=== PATIENT | female | born 1950 | race Asian ===

== ENCOUNTER 2020-04-01 18:41 | Inpatient (IN) | payer OTHER ==
[~2020-04-01] VITALS: Ht 160 cm; Wt 52.3 kg
[2020-04-01 19:14] LABS: Basophils # (auto) 0 10 ^3/uL (0-0.2); Eosinophils # (auto) 0 10 ^3/uL (0-0.8); Eosinophils % (auto) 0.4 % (0.0-7.0); Hematocrit 37.6 % (36.0-46.0); Hemoglobin 12.9 g/dL (12.2-16.2); Lymphocytes # (auto) 0.8 10 ^3/uL (0.4-5.4); Mean Corpuscular Hemoglobin 30.6 pg (28.0-32.0); Mean Corpuscular Hgb Conc. 34.2 g/dL (32.0-36.0); Mean Corpuscular Volume 89.5 fL (80.0-100.0); Monocytes # (auto) 0.4 10 ^3/uL (0-1.3); Monocytes % (auto) 11.4 % (0.0-12.0); Neutrophils # (auto) 2.1 10 ^3/uL (1.6-8.6); Neutrophils % (auto) 64.2 % (37.0-80.0); Nucleated Red Blood Cells % 0.2 %; Platelet Count (auto) 125 10^3/uL (140-450); Red Cell Distribution Width 12.9 % (11.8-14.3); White Blood Cell 3.3 10^3/uL (4.4-10.8)
[2020-04-01 19:31] LABS: INR 0.87 (0.9-1.15); Partial Thromboplastin Time 31.9 sec (23.0-31.2)
[2020-04-01 19:38] LABS: Alanine Aminotransferase 39 U/L (13-56); Albumin 3.3 g/dL (3.4-5.0); Anion Gap 10 (5-15); Aspartate Aminotransferase 51 U/L (15-37); Blood Urea Nitrogen 9 mg/dL (7-18); Calcium 8.4 mg/dL (8.5-10.1); Carbon Dioxide 23 mmol/L (21-32); Chloride 105 mmol/L (98-107); GFR African American 99 mL/min; GFR Non-African American 81 mL/min; Glucose 101 mg/dL (74-106); Magnesium 2.1 mg/dL (1.6-2.6); Potassium 3.9 mmol/L (3.5-5.1); Sodium 138 mmol/L (136-145)
[2020-04-01 19:43] LABS: Alkaline Phosphatase 64 U/L (45-117); Bilirubin, Total 0.4 mg/dL (0.2-1.0)
[2020-04-01] MEDS ORDERED: DOXYCYCLINE 100MG/250ML 250 ML IV ONE (20:00)
[2020-04-01] MEDS ORDERED: ACETAMINOPHEN 325 MG TAB PO ONE (20:00)
[2020-04-01] MEDS ORDERED: DexAMETHasone SOD PHOS 10MG/1ML VIAL INJ IV ONE (20:00)
[2020-04-01] MEDS ORDERED: SODIUM CHLORIDE 0.9% 500 ML IV ONE (20:15)
[2020-04-01] MEDS ORDERED: NITROGLYCERIN 0.4 MG SL TAB SL PRN (22:15)
[2020-04-01] MEDS ORDERED: MORPHINE SULF INJ 2 MG/ML SYRINGE 1ML IV PRN (22:15)
[2020-04-01] MEDS ORDERED: ALBUTEROL SULF HFA 90MCG INH 200DOSE IN PRN (22:15)
[2020-04-01] MEDS ORDERED: ACETAMINOPHEN 500 MG TAB PO PRN (22:15)
[2020-04-01] MEDS ORDERED: REMDESIVIR PER PHARMACY 0 ML IV SCH (22:15)
[2020-04-01] MEDS ORDERED: TEMAZEPAM 15 MG CAP PO PRN (22:15)
[2020-04-02 00:40] VITALS: BP 110/64
[2020-04-02] MEDS ORDERED: ASCO500T11 PO (02:14)
[2020-04-02] MEDS ORDERED: ZINC220C8 PO (02:14)
[2020-04-02] MEDS ORDERED: HYDR200T36 PO (02:14)
[2020-04-02] MEDS ORDERED: CHOL20007 PO (02:14)
[2020-04-02 03:48] LABS: Urine WBC None Seen /hpf (0 - 5)
[2020-04-02 04:03] LABS: Urine Bacteria NONE SEEN /hpf (None Seen); Urine Blood Negative /uL (Negative); Urine Specific Gravity 1.004 (1.001-1.035)
[2020-04-02 05:00] VITALS: BP 100/52
[2020-04-02] MEDS: ACETAMINOPHEN 325 MG TAB PO PRN (06:28)
[2020-04-02] MEDS: guaiFENesin-DM 100/10mg/5ml SYR PO PRN (06:28)
[2020-04-02 07:50] LABS: Hemoglobin 12.8 g/dL (12.2-16.2)
[2020-04-02 07:54] LABS: Hematocrit 36.7 % (36.0-46.0); Mean Corpuscular Hemoglobin 30.7 pg (28.0-32.0); Mean Corpuscular Hgb Conc. 34.8 g/dL (32.0-36.0); Mean Corpuscular Volume 88.1 fL (80.0-100.0); Platelet Count (auto) 128 10^3/uL (140-450); Red Blood Cells 4.17 10^6/uL (4.0-5.20); Red Cell Distribution Width 12.8 % (11.8-14.3)
[2020-04-02 08:05] LABS: Albumin 3.2 g/dL (3.4-5.0); BUN/Creatinine Ratio 14.8; Calcium 8.7 mg/dL (8.5-10.1); Potassium 4.2 mmol/L (3.5-5.1)
[2020-04-02 08:08] LABS: Bilirubin, Total 0.5 mg/dL (0.2-1.0)
[2020-04-02 08:21] LABS: White Blood Cell 1.7 10^3/uL (4.4-10.8)
[2020-04-02 08:22] LABS: Band Neutrophils % (manual) 0; Basophils % (manual) 0 (0.0-2.0); Blast Cells 0; Eosinophils % (manual) 0 (0-7); Metamyelocytes % 0; Myelocytes % 0; Promyelocytes % 0; Reactive Lymphocytes 0
[2020-04-02 08:53] VITALS: BP 105/61
[2020-04-02 08:57] LABS: Lymphocytes % (manual) 50 (10.0-50.0); Monocytes % (manual) 6 (0-12)
[2020-04-02] MEDS: DexAMETHasone SOD PHOS 10MG/1ML VIAL INJ IV SCH (09:54)
[2020-04-02] MEDS: FLORASTOR (S. BOULARDII) 250 MG CAP PO SCH (09:54)
[2020-04-02] MEDS: ZINC SULFATE 220mg CAP or TAB PO SCH (09:54)
[2020-04-02] MEDS: DOXYCYCLINE 100MG/250ML 250 ML IV SCH ×2 (09:54→21:35)
[2020-04-02] MEDS: ASCORBIC ACID 1,000 MG TAB PO SCH (09:55)
[2020-04-02] MEDS: FAMOTIDINE 20 MG TAB PO SCH (09:55)
[2020-04-02] MEDS: CHOLECALCIFEROL (VITD3) 2,000 UNIT CAP/TAB PO SCH (09:55)
[2020-04-02] MEDS: ENOXAPARIN SOD 40 MG/0.4 ML SYRINGE SC SCH ×2 (09:56→21:35)
[2020-04-02] MEDS ORDERED: ENOXAPARIN SOD 40 MG/0.4 ML SYRINGE SC SCH (10:00)
[2020-04-02] MEDS ORDERED: POTASSIUM CHL 20 Meq TABLET PO SCH (10:00)
[2020-04-02] MEDS ORDERED: HYDROcodone-ACET 5/325MG TAB PO PRN (12:15)
[2020-04-02] MEDS ORDERED: BUDESONIDE (INHALATION) 0.5 MG/2 ML NEB ONE (12:27)
[2020-04-02] MEDS ORDERED: BUDESONIDE (INHALATION) 0.5 MG/2 ML NEB NEB ONE (12:30)
[2020-04-02 13:00] VITALS: BP 125/71
[2020-04-02 16:53] VITALS: BP 123/63
[2020-04-02] MEDS: ONDANSETRON HCL 4 MG/2 ML VIAL IV PRN (21:35)
[2020-04-02 22:00] VITALS: BP 106/58
[2020-04-02] MEDS: BUDESONIDE (INHALATION) 0.5 MG/2 ML NEB NEB SCH (22:00)
[2020-04-03 05:00] VITALS: BP 129/62
[2020-04-03 06:25] LABS: Basophils # (auto) 0 10 ^3/uL (0-0.2); Basophils % (auto) 0.1 % (0.0-2.0); Eosinophils # (auto) 0 10 ^3/uL (0-0.8); Hematocrit 33.9 % (36.0-46.0); Lymphocytes # (auto) 1.2 10 ^3/uL (0.4-5.4); Lymphocytes % (auto) 26.6 % (10.0-50.0); Mean Corpuscular Hemoglobin 31.2 pg (28.0-32.0); Mean Corpuscular Hgb Conc. 35.5 g/dL (32.0-36.0); Monocytes # (auto) 0.6 10 ^3/uL (0-1.3); Monocytes % (auto) 12.6 % (0.0-12.0); Neutrophils # (auto) 2.7 10 ^3/uL (1.6-8.6); Neutrophils % (auto) 60.7 % (37.0-80.0); Platelet Count (auto) 155 10^3/uL (140-450); Red Blood Cells 3.85 10^6/uL (4.0-5.20); Red Cell Distribution Width 12.7 % (11.8-14.3); White Blood Cell 4.5 10^3/uL (4.4-10.8)
[2020-04-03 06:49] LABS: BUN/Creatinine Ratio 23.7; Calcium 8.4 mg/dL (8.5-10.1)
[2020-04-03] MEDS: BUDESONIDE (INHALATION) 0.5 MG/2 ML NEB NEB SCH ×2 (07:20→07:55)
[2020-04-03] MEDS: ONDANSETRON HCL 4 MG/2 ML VIAL IV PRN ×2 (07:47→22:06)
[2020-04-03 08:24] VITALS: BP 117/69
[2020-04-03] MEDS: DexAMETHasone SOD PHOS 10MG/1ML VIAL INJ IV SCH (09:40)
[2020-04-03] MEDS: CHOLECALCIFEROL (VITD3) 2,000 UNIT CAP/TAB PO SCH (09:44)
[2020-04-03] MEDS: ENOXAPARIN SOD 40 MG/0.4 ML SYRINGE SC SCH (09:45)
[2020-04-03] MEDS: DOXYCYCLINE 100MG/250ML 250 ML IV SCH (10:00)
[2020-04-03] MEDS: ZINC SULFATE 220mg CAP or TAB PO SCH (10:45)
[2020-04-03] MEDS: FLORASTOR (S. BOULARDII) 250 MG CAP PO SCH (10:57)
[2020-04-03] MEDS: FAMOTIDINE 20 MG TAB PO SCH (10:57)
[2020-04-03] MEDS: ASCORBIC ACID 1,000 MG TAB PO SCH (10:58)
[2020-04-03] MEDS ORDERED: OMEP20TA PO (11:52)
[2020-04-03] MEDS ORDERED: RALO60TA13 PO (11:52)
[2020-04-03] MEDS ORDERED: ATOR20TA50 PO (11:52)
[2020-04-03] MEDS ORDERED: ASCO-22 PO (11:54)
[2020-04-03] MEDS ORDERED: CHOL20007 PO (11:54)
[2020-04-03] MEDS ORDERED: ZINC220C8 PO (11:54)
[2020-04-03 12:38] VITALS: BP 114/62
[2020-04-03] MEDS ORDERED: REMDESIVIR 200 MG in NS 210ml LOADING DOSE ADULT IV ONE (15:00)
[2020-04-03 16:44] VITALS: BP 134/70
[2020-04-03] MEDS: DOXYCYCLINE 100 MG TAB/CAP PO SCH (21:05)
[2020-04-03 22:00] VITALS: BP 113/56
[2020-04-04] MEDS: ONDANSETRON HCL 4 MG/2 ML VIAL IV PRN ×2 (04:40→23:15)
[2020-04-04 05:00] VITALS: BP 106/65
[2020-04-04 07:38] LABS: Albumin 3.2 g/dL (3.4-5.0); Potassium 4.1 mmol/L (3.5-5.1)
[2020-04-04 07:41] LABS: Bilirubin, Total 0.5 mg/dL (0.2-1.0); Total Protein 7.1 g/dL (6.4-8.2)
[2020-04-04] MEDS: BUDESONIDE (INHALATION) 0.5 MG/2 ML NEB NEB SCH ×2 (07:55→23:11)
[2020-04-04 08:28] VITALS: BP 122/67
[2020-04-04] MEDS: ZINC SULFATE 220mg CAP or TAB PO SCH (10:43)
[2020-04-04] MEDS: ASCORBIC ACID 1,000 MG TAB PO SCH (10:46)
[2020-04-04] MEDS: DOXYCYCLINE 100 MG TAB/CAP PO SCH ×2 (10:46→21:57)
[2020-04-04] MEDS: CHOLECALCIFEROL (VITD3) 2,000 UNIT CAP/TAB PO SCH (10:46)
[2020-04-04] MEDS: ENOXAPARIN SOD 40 MG/0.4 ML SYRINGE SC SCH (10:46)
[2020-04-04] MEDS: FAMOTIDINE 20 MG TAB PO SCH (10:47)
[2020-04-04] MEDS: DexAMETHasone 4 MG TAB PO SCH (10:47)
[2020-04-04] MEDS: FLORASTOR (S. BOULARDII) 250 MG CAP PO SCH (10:47)
[2020-04-04 12:00] VITALS: BP 122/61
[2020-04-04] MEDS ORDERED: DOCUSATE SOD 100 MG CAP PO ONE (12:30)
[2020-04-04 12:51] VITALS: BP 122/61
[2020-04-04] MEDS ORDERED: REMDESIVIR 100mg 100 MG in SODIUM CHL 0.9% 230 ML IV SCH (15:00)
[2020-04-04 17:00] VITALS: BP 129/67
[2020-04-04 22:00] VITALS: BP 130/63
[2020-04-04] MEDS: guaiFENesin-DM 100/10mg/5ml SYR PO PRN (23:28)
[2020-04-05 05:00] VITALS: BP 124/74
[2020-04-05] MEDS: DOCUSATE SOD 100 MG CAP PO PRN ×2 (05:04→21:52)
[2020-04-05] MEDS: ACETAMINOPHEN 325 MG TAB PO PRN (05:04)
[2020-04-05 06:20] LABS: Basophils # (auto) 0 10 ^3/uL (0-0.2); Basophils % (auto) 0.8 % (0.0-2.0); Eosinophils # (auto) 0 10 ^3/uL (0-0.8); Hematocrit 36.2 % (36.0-46.0); Hemoglobin 12.4 g/dL (12.2-16.2); Lymphocytes # (auto) 1.3 10 ^3/uL (0.4-5.4); Lymphocytes % (auto) 25.9 % (10.0-50.0); Mean Corpuscular Hemoglobin 30.3 pg (28.0-32.0); Mean Corpuscular Hgb Conc. 34.3 g/dL (32.0-36.0); Mean Corpuscular Volume 88.2 fL (80.0-100.0); Monocytes # (auto) 0.5 10 ^3/uL (0-1.3); Monocytes % (auto) 9.1 % (0.0-12.0); Neutrophils # (auto) 3.3 10 ^3/uL (1.6-8.6); Neutrophils % (auto) 64.2 % (37.0-80.0); Nucleated Red Blood Cells % 0.1 %; Platelet Count (auto) 190 10^3/uL (140-450); Red Blood Cells 4.11 10^6/uL (4.0-5.20); Red Cell Distribution Width 12.7 % (11.8-14.3); White Blood Cell 5.2 10^3/uL (4.4-10.8)
[2020-04-05 06:41] LABS: Potassium 3.7 mmol/L (3.5-5.1)
[2020-04-05 06:46] LABS: Albumin 2.9 g/dL (3.4-5.0); BUN/Creatinine Ratio 25.4; Bilirubin, Total 0.6 mg/dL (0.2-1.0); CRP High Sensitivity 0.18 mg/dL (< 0.3); Calcium 8.3 mg/dL (8.5-10.1); Total Protein 6.5 g/dL (6.4-8.2)
[2020-04-05] MEDS: BUDESONIDE (INHALATION) 0.5 MG/2 ML NEB NEB SCH ×2 (07:23→07:38)
[2020-04-05 08:30] VITALS: BP 122/63
[2020-04-05] MEDS: FAMOTIDINE 20 MG TAB PO SCH (09:51)
[2020-04-05] MEDS: DexAMETHasone 4 MG TAB PO SCH (09:51)
[2020-04-05] MEDS: FLORASTOR (S. BOULARDII) 250 MG CAP PO SCH (09:51)
[2020-04-05] MEDS: ZINC SULFATE 220mg CAP or TAB PO SCH (09:51)
[2020-04-05] MEDS: CHOLECALCIFEROL (VITD3) 2,000 UNIT CAP/TAB PO SCH (09:52)
[2020-04-05] MEDS: ASCORBIC ACID 1,000 MG TAB PO SCH (09:52)
[2020-04-05] MEDS: ENOXAPARIN SOD 40 MG/0.4 ML SYRINGE SC SCH (09:52)
[2020-04-05] MEDS: DOXYCYCLINE 100 MG TAB/CAP PO SCH (09:52)
[2020-04-05 10:53] VITALS: BP 122/63
[2020-04-05] MEDS: D5W/ SOD CHL 0.9%/KCL 20MEQ 1,000 ML IV SCH (11:30)
[2020-04-05] MEDS: DOXYCYCLINE 100MG/250ML 250 ML IV SCH ×2 (11:30→23:23)
[2020-04-05 12:30] VITALS: BP 104/67
[2020-04-05] MEDS: METOCLOPRAMIDE HCL 5MG/ml INJ 2ml VIAL IV SCH ×2 (14:00→21:52)
[2020-04-05 16:57] VITALS: BP 123/66
[2020-04-05 22:00] VITALS: BP 116/67
[2020-04-06] MEDS: D5W/ SOD CHL 0.9%/KCL 20MEQ 1,000 ML IV SCH (04:13)
[2020-04-06 05:00] VITALS: BP 99/64
[2020-04-06 06:00] VITALS: BP 119/63
[2020-04-06] MEDS: METOCLOPRAMIDE HCL 5MG/ml INJ 2ml VIAL IV SCH ×2 (06:07→14:00)
[2020-04-06 07:17] LABS: Albumin 2.6 g/dL (3.4-5.0); BUN/Creatinine Ratio 22.8; Calcium 8.4 mg/dL (8.5-10.1); Potassium 3.8 mmol/L (3.5-5.1)
[2020-04-06 07:21] LABS: Bilirubin, Total 0.5 mg/dL (0.2-1.0); Total Protein 5.7 g/dL (6.4-8.2)
[2020-04-06] MEDS: BUDESONIDE (INHALATION) 0.5 MG/2 ML NEB NEB SCH (07:35)
[2020-04-06 08:58] VITALS: BP 119/63
[2020-04-06] MEDS: ACETAMINOPHEN 325 MG TAB PO PRN (09:08)
[2020-04-06] MEDS: ENOXAPARIN SOD 40 MG/0.4 ML SYRINGE SC SCH (09:49)
[2020-04-06] MEDS: DexAMETHasone 4 MG TAB PO SCH (09:49)
[2020-04-06] MEDS ORDERED: FAMOTIDINE (10MG/ML) 2ML VL IV SCH (10:00)
[2020-04-06] MEDS: DOXYCYCLINE 100MG/250ML 250 ML IV SCH (11:30)
[2020-04-06] MEDS ORDERED: ALBUAER3 IN (11:55)
[2020-04-06] MEDS ORDERED: ASPI-498 OR (11:55)
[2020-04-06] MEDS ORDERED: DOCU-94 PO (11:55)
[2020-04-06] MEDS ORDERED: METO-281 PO (11:55)
[2020-04-06] MEDS ORDERED: DEX4T PO (11:55)
[2020-04-06 13:00] VITALS: BP 116/71
== END 2020-04-06 15:45 | disposition home or self-care (01) | DRG 177 ==
LOC: ER 18:43 → TELE 22:03 → TELE-WESTW 23:41
PROVIDERS: ADMIT Nurse Practitioner; ATTEND Internal Medicine
PROC: XW033E5 Introduction of Remdesivir Anti-infective into Peripheral Vein, Percutaneous Approach, New Technology Group 5 (ICD-10-PCS; principal; 2020-04-03)
DX: U07.1 COVID-19 (principal); J12.82 Pneumonia due to coronavirus disease 2019; E44.0 Moderate protein-calorie malnutrition; Z68.1 Body mass index [BMI] 19.9 or less, adult; E87.6 Hypokalemia; D72.819 Decreased white blood cell count, unspecified; Z85.3 Personal history of malignant neoplasm of breast; Z87.01 Personal history of pneumonia (recurrent); Z79.82 Long term (current) use of aspirin; B94.8 Sequelae of other specified infectious and parasitic diseases
CPT/HCPCS: 36415; 71045; 80048; 80053; 81001; 82728; 83605; 83615; 83735; 83880; 84484; 85007; 85025; 85027; 85379; 85610; 85730; 86141; 87426; 93005; 94640; 96365; 96375; G0378; J1100; J2405; J3490

== ENCOUNTER 2020-04-17 14:13 | Inpatient (IN) | payer OTHER ==
[~2020-04-17] VITALS: Ht 152.4 cm; Wt 55.1 kg
[~2020-04-17 14:13] MED LIST: ASCO-22 PO; ATOR20TA50 PO; CHOL20007 PO; METO-281 PO; OMEP20TA PO; RALO60TA13 PO; ZINC220C8 PO
[2020-04-17] MEDS ORDERED: SODIUM CHLORIDE 0.9% 500 ML IV ONE (14:30)
[2020-04-17 15:09] LABS: Basophils # (auto) 0.1 10 ^3/uL (0-0.2); Basophils % (auto) 1.1 % (0.0-2.0); Eosinophils # (auto) 0.1 10 ^3/uL (0-0.8); Eosinophils % (auto) 1.8 % (0.0-7.0); Hemoglobin 12.1 g/dL (12.2-16.2); Lymphocytes # (auto) 1.5 10 ^3/uL (0.4-5.4); Lymphocytes % (auto) 20.7 % (10.0-50.0); Mean Corpuscular Hemoglobin 30.3 pg (28.0-32.0); Mean Corpuscular Hgb Conc. 33.7 g/dL (32.0-36.0); Mean Corpuscular Volume 89.8 fL (80.0-100.0); Monocytes # (auto) 0.5 10 ^3/uL (0-1.3); Monocytes % (auto) 7.6 % (0.0-12.0); Neutrophils % (auto) 68.8 % (37.0-80.0); Nucleated Red Blood Cells % 0.1 %; Platelet Count (auto) 170 10^3/uL (140-450); Red Blood Cells 4.01 10^6/uL (4.0-5.20); Red Cell Distribution Width 13.1 % (11.8-14.3); White Blood Cell 7.2 10^3/uL (4.4-10.8)
[2020-04-17 15:26] LABS: Albumin 3.2 g/dL (3.4-5.0); Anion Gap 3 (5-15); Blood Urea Nitrogen 15 mg/dL (7-18); Calcium 8.6 mg/dL (8.5-10.1); Carbon Dioxide 28 mmol/L (21-32); Chloride 109 mmol/L (98-107); Glucose 99 mg/dL (74-106); Potassium 3.7 mmol/L (3.5-5.1); Sodium 140 mmol/L (136-145)
[2020-04-17 15:32] LABS: Alanine Aminotransferase 30 U/L (13-56); Alkaline Phosphatase 63 U/L (45-117); Aspartate Aminotransferase 17 U/L (15-37); BUN/Creatinine Ratio 18.3; Bilirubin, Total 0.6 mg/dL (0.2-1.0); CRP High Sensitivity 0.08 mg/dL (< 0.3); GFR African American 89 mL/min; GFR Non-African American 73 mL/min; Total Protein 6.5 g/dL (6.4-8.2)
[2020-04-17] MEDS ORDERED: ONDANSETRON HCL 4 MG/2 ML VIAL IV ONE (16:15)
[2020-04-17] MEDS ORDERED: MORPHINE SULF INJ 2 MG/ML SYRINGE 1ML IV ONE (16:15)
[2020-04-17 17:36] LABS: Urine Bacteria NONE SEEN /hpf (None Seen); Urine Blood Negative /uL (Negative); Urine Specific Gravity 1.004 (1.001-1.035); Urine WBC <1 /hpf (0 - 5)
[2020-04-17] MEDS ORDERED: ONDANSETRON HCL 4 MG/2 ML VIAL IV PRN (18:45)
[2020-04-17] MEDS ORDERED: MORPHINE SULF INJ 2 MG/ML SYRINGE 1ML IV PRN ×2 (18:45)
[2020-04-17] MEDS ORDERED: NITROGLYCERIN 0.4 MG SL TAB SL PRN (18:45)
[2020-04-17] MEDS ORDERED: ACETAMINOPHEN 500 MG TAB PO PRN (18:45)
[2020-04-17] MEDS: SODIUM CHLORIDE 0.9% 1,000 ML IV SCH (19:18)
[2020-04-17 22:34] VITALS: BP 103/50
[2020-04-18] MEDS: HYDROcodone-ACET 5/325MG TAB PO PRN (00:10)
[2020-04-18] MEDS: methylPREDNISolone SOD SUCC 40 MG/ML VL IV SCH ×2 (02:10→10:49)
[2020-04-18 05:00] VITALS: BP 110/50
[2020-04-18 08:41] VITALS: BP 107/66
[2020-04-18] MEDS: SODIUM CHLORIDE 0.9% 1,000 ML IV SCH ×2 (10:16→21:30)
[2020-04-18] MEDS: FAMOTIDINE 20 MG TAB PO SCH (10:49)
[2020-04-18] MEDS ORDERED: levoFLOXacin 500 MG TAB PO ONE (12:15)
[2020-04-18] MEDS ORDERED: DexAMETHasone 4 MG TAB PO ONE (12:15)
[2020-04-18 13:00] VITALS: BP 111/59
[2020-04-18 16:38] VITALS: BP 114/64
[2020-04-18] MEDS: NYSTATIN (MOUTH-THROAT) 500,000 UNITS/5 ML SUSP MT SCH ×2 (18:06→21:30)
[2020-04-18 22:00] VITALS: BP 98/58
[2020-04-19 05:00] VITALS: BP 131/60
[2020-04-19] MEDS: NYSTATIN (MOUTH-THROAT) 500,000 UNITS/5 ML SUSP MT SCH ×4 (06:17→21:20)
[2020-04-19 09:00] VITALS: BP 125/73
[2020-04-19] MEDS: levoFLOXacin 500 MG TAB PO SCH (09:48)
[2020-04-19] MEDS: SODIUM CHLORIDE 0.9% 1,000 ML IV SCH (09:49)
[2020-04-19] MEDS: FAMOTIDINE 20 MG TAB PO SCH (09:49)
[2020-04-19] MEDS ORDERED: DexAMETHasone 4 MG TAB PO SCH (10:00)
[2020-04-19 12:47] VITALS: BP 134/63
[2020-04-19] MEDS ORDERED: ASCORBIC ACID 500 MG TAB PO ONE (14:15)
[2020-04-19] MEDS ORDERED: ALPRAZolam 0.25 MG TAB PO ONE (14:15)
[2020-04-19] MEDS ORDERED: KETOROLAC TROMETH 30 MG/ML 1ML VIAL IV ONE (14:15)
[2020-04-19] MEDS ORDERED: CHOLECALCIFEROL (VITD3) 2,000 UNIT CAP/TAB PO ONE (14:15)
[2020-04-19] MEDS ORDERED: MECLIZINE HCL 25 MG TAB PO PRN (14:15)
[2020-04-19] MEDS ORDERED: LORazepam 2MG/ML-1ML VIAL IV ONE (14:15)
[2020-04-19] MEDS: HYDROcodone-ACET 5/325MG TAB PO PRN (14:17)
[2020-04-19] MEDS ORDERED: ASPirin 81 mg TAB PO ONE (14:30)
[2020-04-19 17:00] VITALS: BP 127/60
[2020-04-19] MEDS: ALPRAZolam 0.25 MG TAB PO SCH (21:20)
[2020-04-19 22:00] VITALS: BP 113/59
[2020-04-20] MEDS: SODIUM CHLORIDE 0.9% 1,000 ML IV SCH ×3 (00:05→22:26)
[2020-04-20 05:12] VITALS: BP 109/67
[2020-04-20] MEDS: NYSTATIN (MOUTH-THROAT) 500,000 UNITS/5 ML SUSP MT SCH ×4 (05:28→21:28)
[2020-04-20 06:12] LABS: Basophils # (auto) 0 10 ^3/uL (0-0.2); Basophils % (auto) 0.4 % (0.0-2.0); Eosinophils # (auto) 0 10 ^3/uL (0-0.8); Eosinophils % (auto) 0.3 % (0.0-7.0); Hematocrit 33.9 % (36.0-46.0); Hemoglobin 11.6 g/dL (12.2-16.2); Lymphocytes % (auto) 28.6 % (10.0-50.0); Mean Corpuscular Hemoglobin 30.9 pg (28.0-32.0); Mean Corpuscular Hgb Conc. 34.1 g/dL (32.0-36.0); Mean Corpuscular Volume 90.6 fL (80.0-100.0); Monocytes # (auto) 0.4 10 ^3/uL (0-1.3); Monocytes % (auto) 6.4 % (0.0-12.0); Neutrophils # (auto) 4.4 10 ^3/uL (1.6-8.6); Neutrophils % (auto) 64.3 % (37.0-80.0); Platelet Count (auto) 136 10^3/uL (140-450); Red Blood Cells 3.74 10^6/uL (4.0-5.20); Red Cell Distribution Width 13.6 % (11.8-14.3); White Blood Cell 6.9 10^3/uL (4.4-10.8)
[2020-04-20 06:31] LABS: Potassium 3.7 mmol/L (3.5-5.1)
[2020-04-20 09:00] VITALS: BP 119/68
[2020-04-20] MEDS: ASCORBIC ACID 500 MG TAB PO SCH (10:16)
[2020-04-20] MEDS: levoFLOXacin 500 MG TAB PO SCH (10:16)
[2020-04-20] MEDS: ASPirin 81 mg TAB PO SCH (10:16)
[2020-04-20] MEDS: CHOLECALCIFEROL (VITD3) 2,000 UNIT CAP/TAB PO SCH (10:16)
[2020-04-20] MEDS: FAMOTIDINE 20 MG TAB PO SCH (10:16)
[2020-04-20] MEDS: ALPRAZolam 0.25 MG TAB PO SCH ×2 (10:17→21:29)
[2020-04-20 12:57] VITALS: BP 94/41
[2020-04-20 13:28] VITALS: BP 100/58
[2020-04-20] MEDS ORDERED: metroNIDAZOLE 500 MG TAB PO ONE (15:15)
[2020-04-20 17:00] VITALS: BP 102/59
[2020-04-20] MEDS: metroNIDAZOLE 500 MG TAB PO SCH (21:29)
[2020-04-20 22:00] VITALS: BP 121/70
[2020-04-21 05:00] VITALS: BP 113/67
[2020-04-21] MEDS: metroNIDAZOLE 500 MG TAB PO SCH ×3 (05:41→21:42)
[2020-04-21] MEDS: NYSTATIN (MOUTH-THROAT) 500,000 UNITS/5 ML SUSP MT SCH ×4 (05:42→21:42)
[2020-04-21] MEDS: HYDROcodone-ACET 5/325MG TAB PO PRN (07:57)
[2020-04-21 08:19] VITALS: BP 119/64
[2020-04-21] MEDS ORDERED: levoFLOXacin 250 MG TAB PO SCH (10:00)
[2020-04-21] MEDS: ASPirin 81 mg TAB PO SCH (10:22)
[2020-04-21] MEDS: FAMOTIDINE 20 MG TAB PO SCH (10:22)
[2020-04-21] MEDS: ALPRAZolam 0.25 MG TAB PO SCH ×2 (10:23→21:42)
[2020-04-21] MEDS: CHOLECALCIFEROL (VITD3) 2,000 UNIT CAP/TAB PO SCH (10:23)
[2020-04-21] MEDS: ASCORBIC ACID 500 MG TAB PO SCH (10:23)
[2020-04-21 12:49] VITALS: BP 99/57
[2020-04-21] MEDS ORDERED: LORazepam 2MG/ML-1ML VIAL IV ONE (14:00)
[2020-04-21] MEDS: SODIUM CHLORIDE 0.9% 1,000 ML IV SCH (16:05)
[2020-04-21 17:27] VITALS: BP 109/65
[2020-04-21 19:34] VITALS: BP 114/60
[2020-04-21 21:46] VITALS: BP 98/50
[2020-04-22] MEDS: HYDROcodone-ACET 5/325MG TAB PO PRN (04:15)
[2020-04-22 05:02] VITALS: BP 100/55
[2020-04-22] MEDS: metroNIDAZOLE 500 MG TAB PO SCH ×3 (05:25→21:40)
[2020-04-22] MEDS: NYSTATIN (MOUTH-THROAT) 500,000 UNITS/5 ML SUSP MT SCH ×4 (05:25→21:40)
[2020-04-22] MEDS: SODIUM CHLORIDE 0.9% 1,000 ML IV SCH ×2 (05:25→18:23)
[2020-04-22 09:00] VITALS: BP 128/69
[2020-04-22] MEDS: FAMOTIDINE 20 MG TAB PO SCH (10:39)
[2020-04-22] MEDS: ALPRAZolam 0.25 MG TAB PO SCH ×2 (10:39→21:41)
[2020-04-22] MEDS: ASPirin 81 mg TAB PO SCH (10:39)
[2020-04-22] MEDS: ASCORBIC ACID 500 MG TAB PO SCH (10:39)
[2020-04-22] MEDS: CHOLECALCIFEROL (VITD3) 2,000 UNIT CAP/TAB PO SCH (11:15)
[2020-04-22 13:00] VITALS: BP 110/54
[2020-04-22 17:00] VITALS: BP 99/50
[2020-04-22 22:00] VITALS: BP 88/45
[2020-04-22 22:55] VITALS: BP 106/55
[2020-04-23 05:00] VITALS: BP 97/48
[2020-04-23] MEDS: metroNIDAZOLE 500 MG TAB PO SCH ×2 (05:44→14:28)
[2020-04-23] MEDS: NYSTATIN (MOUTH-THROAT) 500,000 UNITS/5 ML SUSP MT SCH ×3 (05:44→18:00)
[2020-04-23] MEDS: SODIUM CHLORIDE 0.9% 1,000 ML IV SCH (08:05)
[2020-04-23 09:00] VITALS: BP 81/45
[2020-04-23] MEDS: FAMOTIDINE 20 MG TAB PO SCH (09:10)
[2020-04-23] MEDS: ASCORBIC ACID 500 MG TAB PO SCH (09:10)
[2020-04-23] MEDS: ASPirin 81 mg TAB PO SCH (09:10)
[2020-04-23] MEDS: ALPRAZolam 0.25 MG TAB PO SCH (09:11)
[2020-04-23] MEDS: CHOLECALCIFEROL (VITD3) 2,000 UNIT CAP/TAB PO SCH (09:11)
[2020-04-23 13:00] VITALS: BP 89/47
[2020-04-23 14:10] VITALS: BP 99/40
[2020-04-23] MEDS: HYDROcodone-ACET 5/325MG TAB PO PRN (14:28)
[2020-04-23 15:10] VITALS: BP 99/40
[2020-04-23 16:32] VITALS: BP 101/51
== END 2020-04-23 18:20 | disposition home or self-care (01) | DRG 177 ==
LOC: ER 14:13 → TELE 18:43 → TELE-EAST 22:29
PROVIDERS: ADMIT Nurse Practitioner Acute Care; ATTEND Internal Medicine
DX: U07.1 COVID-19 (principal); J12.82 Pneumonia due to coronavirus disease 2019; E44.1 Mild protein-calorie malnutrition; R62.7 Adult failure to thrive; Z79.82 Long term (current) use of aspirin; F41.9 Anxiety disorder, unspecified; I95.9 Hypotension, unspecified; R51.9 Headache, unspecified; E86.0 Dehydration; M48.061 Spinal stenosis, lumbar region without neurogenic claudication; M51.26 Other intervertebral disc displacement, lumbar region; Z82.49 Family history of ischemic heart disease and other diseases of the circulatory system; Z85.3 Personal history of malignant neoplasm of breast; Z68.24 Body mass index [BMI] 24.0-24.9, adult
CPT/HCPCS: 36415; 70450; 71045; 72100; 72170; 74176; 80048; 80053; 81001; 82306; 82728; 83605; 84443; 84484; 85025; 85379; 86141; 87040; 87081; 87426; 96361; 96374; 96375; 97116; 97530; G0378; J1885; J2405